=== PATIENT | female | born 1970 | race Caucasian/White ===

== ENCOUNTER 2022-10-03 16:28 | Observation (INO) ==
--- NOTE | 2022-10-03 17:15 | Emergency Department Note ---
History of Present Illness General Chief complaint: Abdominal Pain Stated complaint: ABDOMINAL PAIN,VOMIT,DIZZYNESS,SYNCOPE Time Seen by Provider: 10/03/22 16:51 History of Present Illness Maximum Pain Intensity: 6 This is a 52-year-old female who presents to the emergency department via private vehicle with complaints of "abdominal pain, vomiting, dizziness, syncope". The patient and notes that she has a history of extensive abdominal surgeries. 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 She notes that following this she has had bowel obstructions and pancreatitis. She states that over the past 3 to 4 days she has had nausea, vomiting and epigastric abdominal discomfort. She tried 8 mg of Zofran with minimal relief. She notes inability to tolerate oral food and fluids. She overall is not feeling well. She reached out to her specialist and was referred here for further evaluation and management. She notes no stool or flatus for the past few days. She denies any blood in the vomit. She denies any fevers, chills, chest pain or shortness of breath. She notes a history of cholecystectomy, appendectomy, splenectomy, bowel resection x2, and 4 procedures for lysis of ad hesions. She notes that she also has remote history of breast cancer. She notes allergies to surgical glue. In addition, patient notes that she believes secondary to dehydration and not eating much she did pass out earlier today and fell down some steps. She denies striking the head. Home Medications Medication Instructions Recorded Confirmed Type albuterol sulfate 90 mcg/actuation 2 puff inhalation Q4H PRN 10/03/22 10/03/22 History aerosol inhaler Shortness Of Breath Or Wheezing amoxicillin 875 mg-potassium 1 tab PO BID 10/03/22 10/03/22 History clavulanate 125 mg tablet anastrozole 1 mg tablet 1 mg PO DAILY 10/03/22 10/03/22 History fluticasone propionate 115 2 inh inhalation BID 10/03/22 10/03/22 History mcg-salmeterol 21 mcg/actuation HFA inhaler (Advair HFA) hyoscyamine sulfate 0.125 mg 0.125 mg sublingual .Q4-6HR PRN 10/03/22 10/03/22 History sublingual tablet NEEDED PER PT. ondansetron 8 mg disintegrating 8 mg PO Q8H PRN NAUSEA/VOMITING 10/03/22 10/03/22 History tablet progesterone micronized 200 mg 200 mg PO HS 10/03/22 10/03/22 History capsule Allergies Allergy/AdvReac Type Severity Reaction Status Date / Time adhesive tape Allergy Severe Hives Verified 10/03/22 23:07 Past Med/Surg History Medical History Hx of breast cancer Surgical History H/O splenectomy History of bowel resection Hx of appendectomy Hx of cholecystectomy Social History Smoking Status: Never smoker Preferred Language: [place] Feels Safe at Home: Yes Review of Systems A total of 10 systems reviewed and were otherwise negative Physical Exam Vital Signs Vital Signs - 24 hr 10/03/22 16:35 10/03/22 17:05 10/03/22 17:52 Temperature 36.5 C Temperature Source Temporal Artery Scan Pulse Rate 98 H 67 Pulse Rate [Finger] Pulse Rate from SpO2 Sensor Respiratory Rate 18 Respiratory Effort / Characteristics Non-Labored Respiratory Depth Normal Blood Pressure 125/85 Blood Pressure [Right Arm] Blood Pressure Mean 98 Blood Pressure Mean [Right Arm] Pulse Oximetry 95 98 Oxygen Delivery Method Room Air Room Air Sepsis Recent Fever Within 48 Hours No Sepsis New/Unexplained Change in Mental Status No Sepsis Action Taken by Nursing No Action Required 10/03/22 18:40 10/03/22 17:53 10/03/22 18:00 Temperature Temperature Source Pulse Rate 67 63 Pulse Rate [Finger] 72 Pulse Rate from SpO2 Sensor Respiratory Rate 14 15 10 L Respiratory Effort / Characteristics Respiratory Depth Blood Pressure Blood Pressure [Right Arm] 92/50 L Blood Pressure Mean Blood Pressure Mean [Right Arm] 64 Pulse Oximetry 96 Oxygen Delivery Method Room Air Sepsis Recent Fever Within 48 Hours Sepsis New/Unexplained Change in Mental Status Sepsis Action Taken by Nursing 10/03/22 18:09 10/03/22 18:42 10/03/22 18:45 Temperature Temperature Source Pulse Rate 76 Pulse Rate [Finger] Pulse Rate from SpO2 Sensor 74 Respiratory Rate 14 Respiratory Effort / Characteristics Respiratory Depth Blood Pressure 92/50 L Blood Pressure [Right Arm] Blood Pressure Mean 71 Blood Pressure Mean [Right Arm] Pulse Oximetry 97 Oxygen Delivery Method Sepsis Recent Fever Within 48 Hours Sepsis New/Unexplained Change in Mental Status Sepsis Action Taken by Nursing 10/03/22 19:00 10/03/22 19:22 10/03/22 19:22 Temperature Temperature Source Pulse Rate Pulse Rate [Finger] Pulse Rate from SpO2 Sensor 68 75 Respiratory Rate Respiratory Effort / Characteristics Respiratory Depth Blood Pressure 121/87 Blood Pressure [Right Arm] Blood Pressure Mean 92 Blood Pressure Mean [Right Arm] Pulse Oximetry 98 100 Oxygen Delivery Method Sepsis Recent Fever Within 48 Hours Sepsis New/Unexplained Change in Mental Status Sepsis Action Taken by Nursing 10/03/22 19:30 10/03/22 20:00 10/03/22 20:32 Temperature Temperature Source Pulse Rate Pulse Rate [Finger] Pulse Rate from SpO2 Sensor 65 67 61 Respiratory Rate Respiratory Effort / Characteristics Respiratory Depth Blood Pressure Blood Pressure [Right Arm] Blood Pressure Mean Blood Pressure Mean [Right Arm] Pulse Oximetry 98 98 99 Oxygen Delivery Method Sepsis Recent Fever Within 48 Hours Sepsis New/Unexplained Change in Mental Status Sepsis Action Taken by Nursing 10/03/22 21:00 10/03/22 21:37 10/03/22 21:39 Temperature Temperature Source Pulse Rate Pulse Rate [Finger] Pulse Rate from SpO2 Sensor 66 67 68 Respiratory Rate Respiratory Effort / Characteristics Respiratory Depth Blood Pressure Blood Pressure [Right Arm] Blood Pressure Mean Blood Pressure Mean [Right Arm] Pulse Oximetry 99 98 96 Oxygen Delivery Method Sepsis Recent Fever Within 48 Hours Sepsis New/Unexplained Change in Mental Status Sepsis Action Taken by Nursing 10/03/22 21:39 10/03/22 22:00 10/03/22 22:30 Temperature Temperature Source Pulse Rate Pulse Rate [Finger] Pulse Rate from SpO2 Sensor 62 63 Respiratory Rate Respiratory Effort / Characteristics Respiratory Depth Blood Pressure 95/79 L Blood Pressure [Right Arm] Blood Pressure Mean 83 Blood Pressure Mean [Right Arm] Pulse Oximetry 99 98 Oxygen Delivery Method Sepsis Recent Fever Within 48 Hours Sepsis New/Unexplained Change in Mental Status Sepsis Action Taken by Nursing VITAL SIGNS - Vital signs and triage nursing notes were reviewed. Stable and afebrile. GENERAL -52-year-old female appearing her stated age who is in no acute distress. Communicates well with provider and answers questions appropriately. SKIN - Without rashes. Well-healed surgical incisions over the abdomen noted, no evidence of acute or recent surgery. No meningeal or petechial rash. HEAD - NC/AT. EYES -Sclera anicteric. EARS - No deformities of external structures noted on gross examination bilaterally. NOSE - Midline and without cyanosis. No epistaxis or purulent drainage noted. MOUTH/OROPHARYNX - Without perioral cyanosis. NECK - Neck with FROM. No nuchal rigidity. LUNGS - Chest wall symmetric without accessory muscle use, intercostals retractions, or central cyanosis. Normal vesicular breath sounds CTA B/L. No wheezes, rales, or rhonchi appreciated. CARDIAC - RRR with S1/S2. No murmur, rubs, or gallops appreciated. ABDOMEN - Abdominal contour normal without pulsations or visible masses. BS nor moactive all four quadrants. There is epigastric abdominal tenderness to palpation. No guarding or rigidity. Abdomen is overall soft. No palpable masses, hepatosplenomegaly, or ascites noted. EXTREMITIES - +5/5 strength noted in UE/LE bilaterally. NEUROLOGIC - Cranial nerves II through XII grossly intact. PSYCH - A&O, and cooperates fully with examiner. Pt is very pleasant and interacts well with examiner. Course Administered Medications Discontinued Medications Hydromorphone HCl (Hydromorphone Inj 0.5 Mg/0.5 Ml Syr) 0.5 mg IV NOW STA Stop: 10/03/22 23:27 Last Admin: 10/03/22 23:39 Dose: 0.5 mg Documented By: ANUSHKA Hydromorphone HCl (Hydromorphone Inj 0.5 Mg/0.5 Ml Syr) Confirm Administered Dose 0.5 mg .ROUTE .STK-MED ONE Stop: 10/03/22 23:36 Last Admin: 10/03/22 23:38 Dose: Not Given Documented By: ANUSHKA Promethazine HCl (Phenergan) 12.5 mg in 50.5 mls @ 202 mls/hr IV NOW STA Stop: 10/03/22 17:30 Last Infusion: 10/03/22 17:59 Dose: 0 mls/hr Documented By: Admin: 10/03/22 17:41 Dose: 202 mls/hr Documented By: SWETA Sodium Chloride (Nss 1000ml) 1,000 mls @ 999 mls/hr IV .Q1H1M BERTO Stop: 10/03/22 18:30 Last Infusion: 10/03/22 18:47 Dose: 0 mls/hr Documented By: Admin: 10/03/22 17:42 Dose: 999 mls/hr Documented By: SWETA Famotidine (Pepcid 20mg Iv Push) 20 mg in 5 mls @ 2.5 mls/min IV NOW STA Stop: 10/03/22 19:30 Last Admin: 10/03/22 19:35 Dose: 2.5 mls/min Documented By: ANUSHKA Sodium Chloride (Nss 1000ml) 500 mls @ 500 mls/hr IV .Q1H ONE Stop: 10/03/22 20:45 Last Infusion: 10/03/22 21:49 Dose: 0 mls/hr Documented By: Admin: 10/03/22 20:01 Dose: 500 mls/hr Documented By: ANUSHKA Ceftriaxone Sodium 1,000 mg/ (Dextrose) 50 mls @ 100 mls/hr IV NOW STA Stop: 10/03/22 21:12 Last Admin: 10/03/22 21:43 Dose: 100 mls/hr Documented By: ANUSHKA Promethazine HCl 6.25 mg/ (Sodium Chloride) 50.25 mls @ 201 mls/hr IV NOW STA Stop: 10/03/22 23:20 Last Admin: 10/03/22 23:40 Dose: 201 mls/hr Documented By: ANUSHKA Ioversol (Optiray 320 100ml) 94 ml IV ONCE ONE Stop: 10/03/22 18:17 Last Admin: 10/03/22 18:17 Dose: 94 ml Documented By: LULA Ketorolac Tromethamine (Ketorolac Tromethamine 15 Mg/Ml Vial) 10 mg IV NOW ONE Stop: 10/03/22 19:47 Last Admin: 10/03/22 20:01 Dose: 10 mg Documented By: ANUSHKA Morphine Sulfate (Morphine Sulfate 4 Mg/Ml 1 Ml Carp\\Vial) 4 mg IV NOW STA Stop: 10/03/22 17:17 Last Admin: 10/03/22 17:41 Dose: 4 mg Documented By: SWETA Ondansetron HCl (Ondansetron Inj 2 Mg/Ml 2 Ml Vial) 4 mg IV NOW STA Stop: 10/03/22 19:12 Last Admin: 10/03/22 19:23 Dose: 4 mg Documented By: ANUSHKA Medical Decision Making Laboratory Data 10/03/22 16:45 10/03/22 16:45 Lab Results 10/03/22 10/03/22 10/03/22 Range/Units 16:45 16:45 17:00 WBC 8.19 (4.8-10.8) K/ul RBC 4.10 L (4.20-5.40) M/uL Hgb 12.4 (12.0-16.0) g/dl Hct 38.0 (37.0-47.0) % MCV 92.7 (80.0-100.0) fL MCH 30.2 (25.0-34.0) pg MCHC 32.6 (32.0-36.0) g/dL RDW Std Deviation 51.5 H (36.4-46.3) fL RDW Coeff of Kathia 15.1 H (11.5-14.5) % Plt Count 391 (130-400) K/uL MPV 10.6 (9.4-12.4) fL Immature Gran % (Auto) 0.2 % Neut % (Auto) 56.1 % Lymph % (Auto) 28.9 % Garza % (Auto) 9.9 % Eos % (Auto) 4.0 % Baso % (Auto) 0.9 % Neut # (Auto) 4.59 (1.40-6.50) K/uL Lymph # (Auto) 2.37 (1.2-3.4) K/uL Garza # (Auto) 0.81 H (0.11-0.59) K/uL Eos # (Auto) 0.33 (0-0.50) K/uL Baso # (Auto) 0.07 (0-0.2) K/uL Immature Gran # (Auto) 0.02 (0.01-0.20) K/uL Sodium 137 (136-145) mmol/L Potassium 3.7 (3.5-5.1) mmol/L Chloride 103 (98-107) mmol/L Carbon Dioxide 26 (21-32) mmol/L Anion Gap 8 (3-11) BUN 16 (6-23) mg/dl Creatinine 0.85 (0.6-1.2) mg/dl Est Cr Clr Drug Dosing 62.6 ml/min Est GFR ( Amer) 92.6 ml/min Est GFR (Non-Af Amer) 79.9 ml/min BUN/Creatinine Ratio 18.8 (10-20) Glucose 85 (70-99(Fasting)) mg/dl Calcium 10.4 H (8.6-10.3) mg/dl Total Bilirubin 0.7 (0.2-1.0) mg/dl AST 12 L (13-39) U/L ALT 7 (7-52) U/L Alkaline Phosphatase 51 (34-104) U/L Troponin I High Sens 4.2 (0-14) pg/ml Total Protein 7.5 (6.0-8.3) gm/dl Albumin 4.9 (3.4-5.0) gm/dl Globulin 2.6 (2.5-4.0) gm/dl Albumin/Globulin Ratio 1.9 (0.9-2) Amylase 29 (25-115) U/L Lipase 30 (11-82) U/L Urine Color Dark Yellow Urine Appearance Cloudy A (Clear) Urine pH 5.5 (4.5-7.5) Ur Specific [place] 1.030 (1.000-1.030) Urine Protein Trace H (Negative) Urine Glucose (UA) Negative (Negative) Urine Ketones 1+ H (Negative) Urine Blood Negative (Negative) Urine Nitrite Negative (Negative) Urine Bilirubin Negative (Negative) Urine Urobilinogen Negative (Negative) Ur Leukocyte Esterase 2+ H (Negative) Urine WBC (Auto) >30 H (0-5) /hpf Urine RBC (Auto) 5-10 H (0-4) /hpf U Hyaline Cast (Auto) 10-30 H (0-5) /lpf U Epithel Cells (Auto) 20-30 H (0-5) /lpf Urine Bacteria (Auto) Negative (Negative) SARS-CoV-2, RNA, NAAT (NEGATIVE) 10/03/22 Range/Units 19:24 WBC (4.8-10.8) K/ul RBC (4.20-5.40) M/uL Hgb (12.0-16.0) g/dl Hct (37.0-47.0) % MCV (80.0-100.0) fL MCH (25.0-34.0) pg MCHC (32.0-36.0) g/dL RDW Std Deviation (36.4-46.3) fL RDW Coeff of Kathia (11.5-14.5) % Plt Count (130-400) K/uL MPV (9.4-12.4) fL Immature Gran % (Auto) % Neut % (Auto) % Lymph % (Auto) % Garza % (Auto) % Eos % (Auto) % Baso % (Auto) % Neut # (Auto) (1.40-6.50) K/uL Lymph # (Auto) (1.2-3.4) K/uL Garza # (Auto) (0.11-0.59) K/uL Eos # (Auto) (0-0.50) K/uL Baso # (Auto) (0-0.2) K/uL Immature Gran # (Auto) (0.01-0.20) K/uL Sodium (136-145) mmol/L Potassium (3.5-5.1) mmol/L Chloride (98-107) mmol/L Carbon Dioxide (21-32) mmol/L Anion Gap (3-11) BUN (6-23) mg/dl Creatinine (0.6-1.2) mg/dl Est Cr Clr Drug Dosing ml/min Est GFR ( Amer) ml/min Est GFR (Non-Af Amer) ml/min BUN/Creatinine Ratio (10-20) Glucose (70-99(Fasting)) mg/dl Calcium (8.6-10.3) mg/dl Total Bilirubin (0.2-1.0) mg/dl AST (13-39) U/L ALT (7-52) U/L Alkaline Phosphatase (34-104) U/L Troponin I High Sens (0-14) pg/ml Total Protein (6.0-8.3) gm/dl Albumin (3.4-5.0) gm/dl Globulin (2.5-4.0) gm/dl Albumin/Globulin Ratio (0.9-2) Amylase (25-115) U/L Lipase (11-82) U/L Urine Color Urine Appearance (Clear) Urine pH (4.5-7.5) Ur Specific [place] (1.000-1.030) Urine Protein (Negative) Urine Glucose (UA) (Negative) Urine Ketones (Negative) Urine Blood (Negative) Urine Nitrite (Negative) Urine Bilirubin (Negative) Urine Urobilinogen (Negative) Ur Leukocyte Esterase (Negative) Urine WBC (Auto) (0-5) /hpf Urine RBC (Auto) (0-4) /hpf U Hyaline Cast (Auto) (0-5) /lpf U Epithel Cells (Auto) (0-5) /lpf Urine Bacteria (Auto) (Negative) SARS-CoV-2, RNA, NAAT NEGATIVE (NEGATIVE) Imaging Data Radiologist's Impression: Abdomen/Pelvis CT 10/03/22 17:[address] WITH IV CONTRAST CT DOSE: 436.06 mGy.cm HISTORY: Acute right lower quadrant abdominal pain upper abd pain TECHNIQUE: Multiaxial CT images of the abdomen and pelvis were performed following the IV administration of 94 cc of Optiray, A dose lowering technique was utilized adhering to the principles of ALARA. COMPARISON STUDY: None. FINDINGS: Clear lung bases. No pneumatosis or pneumoperitoneum. The spleen and gallbladder appear absent. Unremarkable pancreas and adrenal glands. The liver is within normal limits. Mild biliary ductal dilation may be on a postsurgical basis. Patency of the hepatic and portal veins. Unremarkable left kidney. Mild right-sided hydroureteronephrosis. No obstructing ureteral calculi or lesion identified. Unremarkable urinary bladder. No abdominal aortic aneurysm or lymphadenopathy. Postoperative changes of the stomach. Colonic diverticulosis. Mild to moderate fecal retention. Appendectomy. Unremarkable soft tissues. Probable injection granuloma subcutaneous left gluteal tissues. No acute fracture. IMPRESSION: 1. No bowel obstruction or bowel wall thickening. 2. Appendectomy. 3. Mild right-sided hydronephrosis. 4. Additional findings as above. ACT 112: Negative or not required by law. The above report was generated using voice recognition software. It may contain grammatical, syntax or spelling errors. Electronically signed by: Harjinder aGldamez M.D. 10/03/2022 6:41 PM [facility] Narrative Patient was seen and evaluated as above in room B07. Review was performed of triage nursing notes and vital signs. After obtaining a thorough history and physical examination the above work up was performed. Patient presents to us today for evaluation of abdominal pain, nausea and vomiting. Patient clinically well-appearing and nontoxic. Vital signs stable. She is tender in the upper abdomen to palpation. Options of care were discussed with the patient. IV access was established. Labs were drawn. Patient notes minimal relief with Zofran at home last evening and did indicate that she has done well with Phenergan in the past. 12.5 mg of IV Phenergan was ordered as well as IV fluids and morphine. She was reevaluated with some improvement however the nausea persisted. She has not had Zofran today therefore was amenable to proceeding with IV Zofran which was provided. CT scan of the abdomen/pelvis was obtained. Results as above. No bowel obstruction or bowel wall thickening. Mild right-sided hydronephrosis. Patient's labs reveal no leukocytosis or concerning anemia. No emergent metabolic disturbance. Urinalysis reveals possible UTI versus contaminated sample. In the setting of abdominal pain, nausea and vomiting UTI is possible as well as a sending urinary tract infection. Patient is asplenic. In the setting of nausea, vomiting and pending urinary culture at this time we will cover the patient with IV antibiotics. IV ceftriaxone was ordered. COVID testing is negative. In addition she was also provided IV Pepcid and IV Toradol. No contraindications identified at this time. P.o. fluid trial was in itiated and the patient was able to tolerate some of the water provided but unfortunately did have some near vomiting and return of abdominal discomfort. I discussed several options with the patient and at this time we will proceed with inpatient management. Case discussed with the hospitalist. Please refer to further documentation regarding her stay. Patient did note that she secondary to being dehydrated and not eating much believes that she passed out earlier today and fell down steps. She denies striking the head. There are no signs of head injury. Patient's nausea, vomiting abdominal pain began before the syncopal event. To be thorough I did add on an EKG and troponin with a syncopal event noted. Troponin is within normal range and the EKG reveals normal sinus rhythm at a rate of 66 bpm. QTc 381. QRS 86. There is no ST elevation. No previous for comparison. In the evaluation and treatment of this patient the following differential diagnoses were entertained: ND, PE, dissection, acute cardiac event, pneumonia, pancreatitis, bowel obstruction, UTI, pyelonephritis, among others. Impression & Plan Abdominal pain, epigastric, Nausea & vomiting Discharge Plan Visit Data Chief Complaint: Abdominal Pain Stated Complaint: ABDOMINAL PAIN,VOMIT,DIZZYNESS,SYNCOPE ED Provider: Maicol Cortés ED Midlevel Provider: Albin Locke Discharge Problem: Abdominal pain, epigastric, Nausea & vomiting Patient Disposition: Admitted As Inpatient Condition: Good Discharge Instructions Interventions: ED Discharge Assessment Last Done: 10/03/22 23:44
[2022-10-03] MEDS ORDERED: MoRPHine SULFATE 4 MG/ML 1 ML CARP\\VIAL IV STA (17:16)
[2022-10-03] MEDS ORDERED: PROMETHAZINE 12.5 MG/50.5 ML BAG IV STA (17:16)
[2022-10-03 17:26] LABS: Appearance Urine Cloudy (Clear); Bacteria Urine Automated Negative (Negative); Bilirubin Urine Negative (Negative); Blood Urine Negative (Negative); Color Urine Dark Yellow; Epithelial Cell Urine Auto 20-30 /lpf (0-5); Glucose Urine UA Negative (Negative); Ketones Urine 1+ (Negative); Leukocyte Esterase Urine 2+ (Negative); Nitrite Urine Negative (Negative); Protein Urine Trace (Negative); Urobilinogen Urine Negative (Negative); WBC Urine Automated >30 /hpf (0-5); pH Urine 5.5 (4.5-7.5)
[2022-10-03 17:28] LABS: Basophils # (auto) 0.07 K/uL (0-0.2); Basophils % (auto) 0.9 %; Eosinophils # (auto) 0.33 K/uL (0-0.50); Hemoglobin 12.4 g/dl (12.0-16.0); Immature Granulocytes # (auto) 0.02 K/uL (0.01-0.20); Immature Granulocytes % (auto) 0.2 %; Lymphocytes # (auto) 2.37 K/uL (1.2-3.4); Lymphocytes % (auto) 28.9 %; Mean Corpuscular Hemoglobin 30.2 pg (25.0-34.0); Mean Corpuscular Hgb Conc 32.6 g/dL (32.0-36.0); Mean Corpuscular Volume 92.7 fL (80.0-100.0); Mean Platelet Volume 10.6 fL (9.4-12.4); Monocytes # (auto) 0.81 K/uL (0.11-0.59); Monocytes % (auto) 9.9 %; Neutrophils # (auto) 4.59 K/uL (1.40-6.50); Neutrophils % (auto) 56.1 %; Platelet Count 391 K/uL (130-400); RDW Coefficient of Variation 15.1 % (11.5-14.5); RDW Standard Deviation 51.5 fL (36.4-46.3); White Blood Count 8.19 K/ul (4.8-10.8)
[2022-10-03] MEDS ORDERED: SODIUM CHLORIDE 0.9% 1000ML 1,000 ML IV SCH (17:30)
[2022-10-03 17:43] LABS: Albumin Globulin Ratio 1.9 (0.9-2); Albumin Level 4.9 gm/dl (3.4-5.0); BUN Creatinine Ratio 18.8 (10-20); Bilirubin,Total 0.7 mg/dl (0.2-1.0); Calcium 10.4 mg/dl (8.6-10.3); Creatinine Clr Calc Pharmacy 62.6 ml/min; Est GFR (African American) 92.6 ml/min; Est GFR (Non-African American) 79.9 ml/min; Globulin 2.6 gm/dl (2.5-4.0); Potassium 3.7 mmol/L (3.5-5.1); Total Protein 7.5 gm/dl (6.0-8.3)
[2022-10-03 17:48] LABS: Troponin I High Sensitivity 4.2 pg/ml (0-14)
[2022-10-03] MEDS ORDERED: OPTIRAY 320 100ml IV ONE (18:16)
--- NOTE | 2022-10-03 18:42 | CT Scan Report ---
ABDOMEN AND PELVIS CT WITH IV CONTRAST CT DOSE: 436.06 mGy.cm HISTORY: Acute right lower quadrant abdominal pain upper abd pain TECHNIQUE: Multiaxial CT images of the abdomen and pelvis were performed following the IV administrat ion of 94 cc of Optiray, A dose lowering technique was utilized adhering to the principles of ALARA. COMPARISON STUDY: None. FINDINGS: Clear lung bases. No pneumatosis or pneumoperitoneum. The spleen and gallbladder appear abs ent. Unremarkable pancreas and adrenal glands. The liver is within normal limits. Mild biliary ductal dilation may be on a postsurgical basis. Patency of the hepatic and portal veins. Unremarkable left kidney. Mild right-sided hydroureteronephrosis. No obstructing ureteral calculi or lesion identified. Unremarkable urinary bladder. No abdominal aortic aneurysm or lymphadenopathy. Postoperative changes of the stomach. Colonic diverticulosis. Mild to moderate fecal retention. Appen dectomy. Unremarkable soft tissues. Probable injection granuloma subcutaneous left gluteal tissues. N o acute fracture. IMPRESSION: 1. No bowel obstruction or bowel wall thickening. 2. Appendectomy. 3. Mild right-sided hydronephrosis. 4. Additional findings as above. ACT 112: Negative or not required by law. The above report was generated using voice recognition software. It may contain grammatical, syntax o r spelling errors. Electronically signed by: Harjinder Galdamez M.D. 10/03/2022 6:41 PM
[2022-10-03] MEDS ORDERED: ONDANSETRON INJ 2 MG/ML 2 ML VIAL IV STA (19:11)
[2022-10-03] MEDS ORDERED: FAMOTIDINE 20MG IV PUSH 20 MG/5 ML SYR IV STA (19:29)
[2022-10-03] MEDS ORDERED: SODIUM CHLORIDE 0.9% 1000ML 500 ML IV ONE (19:46)
[2022-10-03] MEDS ORDERED: KETOROLAC TROMETHAMINE 15 MG/ML VIAL IV ONE (19:46)
[2022-10-03] MEDS ORDERED: cefTRIAXone SODIUM 1,000 MG in DEXTROSE 5% AD-VAN 50 ML IV STA (20:43)
[2022-10-03] MEDS ORDERED: PROMETHAZINE HCL 6.25 MG in SODIUM CHLORIDE 0.9% 50 ML IV STA (23:06)
[2022-10-03] MEDS ORDERED: HYDROmorphone INJ 0.5 MG/0.5 ML SYR IV STA (23:26)
[2022-10-03] MEDS ORDERED: HYDROmorphone INJ 0.5 MG/0.5 ML SYR ONE (23:35)
[2022-10-04] MEDS ORDERED: ALBUTEROL HFA 8 GM INHALER INH PRN (01:11)
[2022-10-04] MEDS: ACETAMINOPHEN 325 MG TAB PO PRN ×2 (01:35→20:56)
[2022-10-04] MEDS: ONDANSETRON INJ 2 MG/ML 2 ML VIAL IV PRN ×4 (01:35→23:28)
[2022-10-04] MEDS: D5W AND 1/2NSS 1,000 ML IV SCH ×3 (01:40→18:17)
--- NOTE | 2022-10-04 01:57 | History and Physical Report ---
DATE OF ADMISSION: 10/03/2022. CHIEF COMPLAINT: Nausea, vomiting, abdominal pain. 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 Carrie says scheduled for another surgery in coming November as , has ongoing nausea, vomiting and weight loss for several months and plan for abdominal surgery to assess the previous surgical site as per patient. She is from [facility] in [place]. She is in [place] [facility] [employer] for horse show, last 2-3 days her usual nausea, vomiting, abdominal pain got worse and today she fell climbing the steps. She had a dizzy spell and fell down and lost consciousness for few seconds no significant injury.. Currently denies any chest pain. No shortness of breath, no cough, no fevers, no headache, no blurred visions, no earache, no runny nose. Has some nausea. Has abdominal pain. She did not move her bowels for the last 3 to 4 days. She is not passing much gas. Normal bladder movements. No swelling in the legs, no rash. Afebrile. Resting comfortably and hemodynamically stable. ALLERGIES: SURGICAL TAPE. PAST MEDICAL HISTORY: As mentioned above. Also has seasonal allergies. PAST SURGICAL HISTORY: As mentioned above. MEDICATIONS: Albuterol 2 puffs inhalation q. 4 hours p.r.n., Augmentin 1 tablet p.o. b.i.d. supposed to start next Friday for upcoming surgery, anastrozole 1 mg p.o. daily, Advair Diskus HFA 2 puffs inhalation b.i.d., hyoscyamine 0.125 mg p.o. q. 4-6 hours p.r.n., Zofran 8 mg p.o. q. 8 hours p.r.n., progesterone micronized 200 mg p.o. at bedtime. FAMILY HISTORY: Significant for father had heart disease. Mother has high cholesterol. SOCIAL HISTORY: Denies smoking. No alcohol. REVIEW OF SYSTEMS: As per HPI. Rest of review of systems is negative. PHYSICAL EXAMINATION: GENERAL: The patient is of moderate build, not in acute distress. VITAL SIGNS: Temperature 36.5, pulse 72, respiratory rate 14, blood pressure 92/50, oxygen 96% on room air. HEENT: Pupils equal, round and reactive to light. Oral mucosa moist. NECK: No JVD, no neck masses. CARDIOVASCULAR: S1 and S2 heard. Regular rate and rhythm. No murmur, no gallop. RESPIRATORY SYSTEM: Normal AP diameter. No accessory muscle use. No wheezing or crackles. ABDOMEN: Soft, bowel sounds sluggish, diffuse tenderness mild guarding, no rigidity. CENTRAL NERVOUS SYSTEM: Cranial nerves II-XII grossly intact, nonfocal. EXTREMITIES: No edema, no erythema. LABORATORY DATA: WBC 8.1, hemoglobin 12.4, hematocrit 38, platelets 391. Sodium 137, potassium 3.7, chloride 103, bicarbonate 26, BUN 16, creatinine 0.8, serum glucose 85, calcium 10.4, total bilirubin 0.7, AST 12, ALT 7, alkaline phosphatase 51. Troponin I high sensitivity 4.2. Lipase 30. Urinalysis, +2 leukocyte esterase, bacteria 3+. SARS-CoV-2 rapid test negative. IMAGING DATA: CT abdomen and pelvis with IV contrast, no bowel obstruction or bowel wall thickening, appendectomy, mild right-sided hydronephrosis. EKG: Normal sinus rhythm, rate of 66, no acute ST changes seen. ASSESSMENT AND PLAN: This is a 52-year-old female with multiple abdominal surgeries and multiple small-bowel obstructions, surgery for small-bowel obstruction and also adhesiolysis as per the patient, comes in with nausea, vomiting, abdominal pain. 1. Nausea, vomiting, abdominal pain. CAT scan abdomen and pelvis is mostly unremarkable. We will place her on n.p.o., IV fluids, IV antiemetics, IV pain medications, IV Pepcid b.i.d. and monitor for response. IF not improving, consult GI. 2. Urinary tract infection, possibly contributing to her symptoms. Started on Rocephin. We will follow the cultures. 3. Syncope. The patient says she felt dizzy and passed out for 2-3 seconds. Could be dehydration from her symptoms. We will do orthostatics. Monitor in the tele floor. Get echocardiogram. Get cardiac enzymes. If any concern, consult Cardiology. 4. History of seasonal asthma. Inhalers as needed. 5. Deep venous thrombosis prophylaxis. Lovenox. DISPOSITION: Closely monitor in the med tele. PT/OT prior to discharge. Social service to help with discharge planning. Job ID: [id number] KENZIE
[2022-10-04] MEDS: ENOXAPARIN INJ 40 MG/0.4 ML SYR SQ SCH (03:32)
[2022-10-04] MEDS: HYDROmorphone INJ 0.5 MG/0.5 ML SYR IV PRN ×5 (03:32→23:29)
[2022-10-04] MEDS: PROMETHAZINE HCL 12.5 MG in SODIUM CHLORIDE 0.9% 50 ML IV PRN ×3 (04:17→18:55)
[2022-10-04 06:10] LABS: Hematocrit (blood only) 30.2 % (37.0-47.0); Hemoglobin 9.8 g/dl (12.0-16.0); Mean Corpuscular Hemoglobin 30.1 pg (25.0-34.0); Mean Corpuscular Hgb Conc 32.5 g/dL (32.0-36.0); Mean Corpuscular Volume 92.6 fL (80.0-100.0); Mean Platelet Volume 9.8 fL (9.4-12.4); Platelet Count 326 K/uL (130-400); RDW Coefficient of Variation 15.4 % (11.5-14.5); Red Blood Count 3.26 M/uL (4.20-5.40); White Blood Count 7.56 K/ul (4.8-10.8)
[2022-10-04 06:39] LABS: BUN Creatinine Ratio 13.2 (10-20); Calcium 8.2 mg/dl (8.6-10.3); Est GFR (Non-African American) 91.5 ml/min; Magnesium 1.8 mg/dl (1.7-2.4); Potassium 3.9 mmol/L (3.5-5.1)
[2022-10-04 06:41] LABS: Basophils # (auto) 0.09 K/uL (0-0.2); Basophils % (auto) 1.2 %; Eosinophils # (auto) 0.57 K/uL (0-0.50); Eosinophils % (auto) 7.5 %; Immature Granulocytes # (auto) 0.01 K/uL (0.01-0.20); Immature Granulocytes % (auto) 0.1 %; Lymphocytes % (auto) 55.6 %; Monocytes % (auto) 10.6 %; Neutrophils # (auto) 1.89 K/uL (1.40-6.50)
[2022-10-04 08:44] LABS: Troponin I High Sensitivity 4.7 pg/ml (0-14)
[2022-10-04] MEDS ORDERED: NON-FORMULARY MEDICATION (Fluticasone Propion-Salmeterol [Advair Hfa] 115-21 mcg/actuation INH SCH (09:00)
[2022-10-04] MEDS: FLUTICASONE/VILANTEROL 200/25MCG 14 PUFFS/INHALER INH SCH (09:08)
[2022-10-04] MEDS: FAMOTIDINE 20 MG in SYRINGE 3 ML IV SCH ×2 (09:09→20:56)
[2022-10-04] MEDS: LINACLOTIDE 145 MCG CAPSULE PO SCH (09:09)
[2022-10-04] MEDS ORDERED: DICYCLOMINE HCL 10 MG CAP PO PRN (11:09)
--- NOTE | 2022-10-04 11:33 | Electrocardiogram Report ---
Test Reason : Blood Pressure : / mmHG Vent. Rate : 066 BPM Atrial Rate : 066 BPM P-R Int : 138 ms QRS Dur : 086 ms QT Int : 364 ms P-R-T Axes : 067 076 045 degrees QTc Int : 381 ms Normal sinus rhythm Normal ECG No previous ECGs available Confirmed by Darwin Lamb ([id number]) on 10/04/2022 11:33:18 AM Referred By: REFERRED SELF Confirmed By:Braxton Lamb
--- NOTE | 2022-10-04 12:15 | Communication Note ---
Date of Service: October 04, 2022 52-year-old female with PMH of endometriosis, status post hysterectomy and fallopian tube taken out as per patient, gastric sleeve surgery for weight loss in 2019 complicated with a splenic injury requiring multiple blood transfusion leading to splenectomy as per patient, multiple small bowel obstructions with one of them needing bowel resection and another needing adhesiolysis. Patient states she is scheduled for another surgery in coming November as she has ongoing nausea/vomiting/weight loss for several months to assess the previous surgical site. She comes in with complaint of worsening nausea, vomiting, abdominal pain leading to fall while climbing the steps prior to arrival. She also had dizzy spell and lost consciousness for few seconds with no significant injury as per her. She is being managed for the following: Acute exacerbation of chronic nausea/vomiting/abdominal pain on the background gastric sleeve surgery in 2019 Syncope : Acute flareup of her nausea/vomiting/abdominal pain leading to decreased appetite and weakness leading to fall. Patient has been resuscitated with IV fluids, continue with antiemetics and advance diet as tolerated. Patient reports some improvement in her belly pain and nausea. We will continue with IV fluids for now. Echo was reviewed and fairly WNL. EKG with NSR. Orthostatic vitals negative. Patient reports improvement in her dizziness. Clear liquid diet, advance diet as tolerated. Acute UTI: Could be contributing to her symptoms, continue with Rocephin, follow cultures. Other chronic medical conditions: Continue home meds as able. DVT prophylaxis: Lovenox Disposition likely tomorrow. Advance diet as tolerated. On examination: Some epigastric tenderness, on room air, NAD, heart and lungs examination WNL. For detailed information on the patient, refer to today's H&P note.
[2022-10-04] MEDS: cefTRIAXone SODIUM 1,000 MG in DEXTROSE 5% AD-VAN 50 ML IV SCH (20:49)
[2022-10-05] MEDS: ACETAMINOPHEN 325 MG TAB PO PRN ×3 (01:03→11:31)
[2022-10-05] MEDS: PROMETHAZINE HCL 12.5 MG in SODIUM CHLORIDE 0.9% 50 ML IV PRN ×2 (01:04→07:50)
[2022-10-05] MEDS: D5W AND 1/2NSS 1,000 ML IV SCH ×2 (03:02→11:15)
[2022-10-05] MEDS: HYDROmorphone INJ 0.5 MG/0.5 ML SYR IV PRN (03:30)
[2022-10-05] MEDS: ONDANSETRON INJ 2 MG/ML 2 ML VIAL IV PRN ×2 (05:18→11:32)
[2022-10-05] MEDS: ENOXAPARIN INJ 40 MG/0.4 ML SYR SQ SCH (05:18)
[2022-10-05 06:08] LABS: Hematocrit (blood only) 33.3 % (37.0-47.0); Hemoglobin 10.4 g/dl (12.0-16.0); Mean Corpuscular Hemoglobin 30.3 pg (25.0-34.0); Mean Corpuscular Hgb Conc 31.2 g/dL (32.0-36.0); Mean Corpuscular Volume 97.1 fL (80.0-100.0); Mean Platelet Volume 10.2 fL (9.4-12.4); Platelet Count 358 K/uL (130-400); RDW Coefficient of Variation 15.5 % (11.5-14.5); RDW Standard Deviation 55.6 fL (36.4-46.3); Red Blood Count 3.43 M/uL (4.20-5.40); White Blood Count 6.41 K/ul (4.8-10.8)
[2022-10-05 06:23] LABS: BUN Creatinine Ratio 3.9 (10-20); Calcium 8.9 mg/dl (8.6-10.3); Creatinine Clr Calc Pharmacy 69.1 ml/min; Est GFR (African American) 104.3 ml/min; Magnesium 1.8 mg/dl (1.7-2.4); Phosphorus 3.9 mg/dl (2.5-4.9); Potassium 4.2 mmol/L (3.5-5.1)
[2022-10-05] MEDS: LINACLOTIDE 145 MCG CAPSULE PO SCH (07:50)
[2022-10-05] MEDS: FAMOTIDINE 20 MG in SYRINGE 3 ML IV SCH (07:50)
[2022-10-05] MEDS: FLUTICASONE/VILANTEROL 200/25MCG 14 PUFFS/INHALER INH SCH (07:50)
[2022-10-05] MEDS ORDERED: ADVANCED PROBIOTIC 1250 MG CAPSULE PO SCH (11:30)
--- NOTE | 2022-10-05 14:33 | Discharge Summary ---
Date of Service October 05, 2022 Admission HPI Per Admitting Provider DATE OF ADMISSION: 10/03/2022. CHIEF COMPLAINT: Nausea, vomiting, abdominal pain. 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 Carrie says scheduled for another surgery in coming November as , has ongoing nausea, vomiting and weight loss for several months and plan for abdominal surgery to assess the previous surgical site as per patient. [place] [facility] [place] She is in [place] for horse show, last 2-3 days her usual nausea, vomiting, abdominal andry n got worse and today she fell climbing the steps. She had a dizzy spell and fell down and lost consciousness for few seconds no significant injury.. Currently denies any chest pain. No shortness of breath, no cough, no fevers, no headache, no blurred visions, no earache, no runny nose. Has some nausea. Has abdominal pain. She did not move her bowels for the last 3 to 4 days. She is not passing much gas. Normal bladder movements. No swelling in the legs, no rash. Afebrile. Resting comfortably and hemodynamically stable. ALLERGIES: SURGICAL TAPE. PAST MEDICAL HISTORY: As mentioned above. Also has seasonal allergies. PAST SURGICAL HISTORY: As mentioned above. MEDICATIONS: Albuterol 2 puffs inhalation q. 4 hours p.r.n., Augmentin 1 tablet p.o. b.i.d. supposed to start next Friday for upcoming surgery, anastrozole 1 mg p.o. daily, Advair Diskus HFA 2 puffs inhalation b.i.d., hyoscyamine 0.125 mg p.o. q. 4-6 hours p.r.n., Zofran 8 mg p.o. q. 8 hours p.r.n., progesterone micronized 200 mg p.o. at bedtime. FAMILY HISTORY: Significant for father had heart disease. Mother has high cholesterol. SOCIAL HISTORY: Denies smoking. No alcohol. REVIEW OF SYSTEMS: As per HPI. Rest of review of systems is negative. Admission Exam Per Admitting Provider GENERAL: The patient is of moderate build, not in acute distress. VITAL SIGNS: Temperature 36.5, pulse 72, respiratory rate 14, blood pressure 92/50, oxygen 96% on room air. HEENT: Pupils equal, round and reactive to light. Oral mucosa moist. NECK: No JVD, no neck masses. CARDIOVASCULAR: S1 and S2 heard. Regular rate and rhythm. No murmur, no gallop. RESPIRATORY SYSTEM: Normal AP diameter. No accessory muscle use. No wheezing or crackles. ABDOMEN: Soft, bowel sounds sluggish, diffuse tenderness mild guarding, no rigidity. CENTRAL NERVOUS SYSTEM: Cranial nerves II-XII grossly intact, nonfocal. EXTREMITIES: No edema, no erythema. Principal Diagnosis Acute flareup of chronic nausea, vomiting, abdominal pain on the background of gastric sleeve surgery in 2019 Syncope likely secondary to poor appetite and vomiting Acute UTI Discharge Exam GENERAL: Alert and oriented x3. NAD, on RA. HEENT: No pallor, no icterus. Pupils equal, round and reactive to light. Oral mucosa moist. NECK: No JVD, no neck masses. HEART: S1 and S2 heard. Regular rate and rhythm. No murmur, no gallop. RESPIRATORY SYSTEM: Normal AP diameter. No accessory muscle use. No wheezing, no crackles. ABDOMEN: Soft, bowel sounds present, no epigastric tenderness, no distention. healed old surgical scar CENTRAL NERVOUS SYSTEM: No facial droop. Speech is clear. Obeys simple commands. Moves extremities. EXTREMITIES: No edema, no erythema seen. Discharge Data Allergies Allergy/AdvReac Type Severity Reaction Status Date / Time adhesive tape Allergy Severe Hives Verified 10/03/22 23:07 surgical glue Allergy Unknown Uncoded 10/04/22 07:20 Consultations 10/03/22 22:09 ED Decision to Admit Stat Ordered Studies 10/03/22 17:16 CT abd pelvis IV con only Stat Hospital Course (1) Abdominal pain, epigastric: Plan 52-year-old female with PMH of endometriosis, status post hysterectomy and fallopian tube taken out as per patient, gastric sleeve surgery for weight loss in 2019 complicated with a splenic injury requiring multiple blood transfusion leading to splenectomy as per patient, multiple small bowel obstructions with one of them needing bowel resection and another needing adhesiolysis. Patient states she is scheduled for another surgery in coming November as she has ongoing nausea/vomiting/weight loss for several months to assess the previous surgical site. She comes in with complaint of worsening nausea, vomiting, abdominal pain leading to fall while climbing the steps prior to arrival. She also had dizzy spell and lost consciousness for few seconds with no significant injury as per her. She is being managed for the following: Acute exacerbation of chronic nausea/vomiting/abdominal pain on the background gastric sleeve surgery in 2019 Syncope Acute flareup of her nausea/vomiting/abdominal pain leading to decreased appetite and weakness leading to fall. Patient has been resuscitated with IV fluids, continue with antiemetics and advance diet as tolerated.Pt has been tolerating diet well, no further vomiting and belly pain has improved significantly/less pain meds use. Will DC ivf. Echo was reviewed and fairly WNL. EKG with NSR. Orthostatic vitals negative. Patient reports improvement in her dizziness. Patient is hemodynamically stable and would like to go home. Acute UTI: Could be contributing to her symptoms, continue with Rocephin, on oral antibiotics before discharge. Other chronic medical conditions: Continue home meds as able. Patient being discharged home with following instruction at the point of discharge: Follow-up with your primary care physician within a week time and likely you will need labs CBC/CMP/magnesium/phosphorus. You can incorporate probiotic in your diet like yogurt. Maintain on soft diet for 1 to 2 weeks then slowly advance towards your regular consistency diet. For your UTI, you will be given with antibiotics course, complete as prescribed. Follow-up with the GI doctor as an outpatient as prior. Please make sure that you are able to get your medications today by calling your pharmacy before you leave the hospital so that your treatment continuity is not broken. Home Health Attestation I certify that this patient is under my care and that I, or a physicians purchasing assistant working with me, had a face to-face encounter that meets the home health [id number] encounter requirements with this patient. The encounter with the patient was in whole, or in part, for the following medical condition, which is the primary reason for home health care (list medical condition): I certify that, based on my findings, the following services are medically necessary home health services: My clinical findings support the need for the above services because: Further, I certify that my clinical findings support that this patient is homebound (i.e. absences from home require considerable and taxing effort and are for medical reasons or sabianism services or infrequently or of short duration when for other reasons) because: Certification for Home Health Services: Based on the above findings, I certify that this patient is confined to the home and needs intermittent mcc care, physical therapy and/or speech therapy or continues to need occupational therapy. The patient is under my care, and I have initiated the establishment of the plan of care. This patient will be followed by a physician who will periodically review the plan of care. Total Time Total Time Spent Total Time Spent (In Minutes): 50 Discharge Plan Discharge Items Patient Disposition: Home - Self-Care Reason For Visit: ABDOMINAL PAIN Discharge Diagnosis: Acute flareup of chronic nausea, vomiting, abdominal pain on the background of gastric sleeve surgery in 2019 Syncope likely secondary to poor appetite and vomiting Acute UTI Condition on Discharge: Good Activity: Resume your previous activity Non-emergency contact: Primary Care Provider Call non-emergency contact if: you have any medication questions, your pain is not controlled and your temperature is above 101 Follow-up/Referrals: Trinity Steele PA-C [Primary Care Provider] - Diet: Low Fiber Diet Texture: Easy to Chew Addtl Attending Provider Instructions: Follow-up with your primary care physician within a week time and likely you will need labs CBC/CMP/magnesium/phosphorus. You can incorporate probiotic in your diet like yogurt. Maintain on soft diet for 1 to 2 weeks then slowly advance towards your regular consistency diet. For your UTI, you will be given with antibiotics course, complete as prescribed. Follow-up with the GI doctor as an outpatient as prior. Please make sure that you are able to get your medications today by calling your pharmacy before you leave the hospital so that your treatment continuity is not broken. Pending Studies at Discharge: No Stand-Alone Forms: My [employer], Smoking Cessation Medications and DC Order Prescriptions: New dicyclomine 10 mg Capsule 10 mg PO TID PRN (Reason: abdominal pain) Qty: 30 0RF Advanced Probiotic 625 mg (10 billion cell) Capsule 2 cap PO DAILY 7 Days Qty: 14 0RF ondansetron 4 mg tablet,disintegrating 4 mg PO Q8H PRN (Reason: nausea and vomiting) Qty: 30 0RF oxycodone-acetaminophen [Percocet] 5-325 mg tablet 1 tab PO Q8H PRN (Reason: pain (scale score 7-10)) 3 Days Qty: 9 0RF cephalexin 750 mg capsule 750 mg PO TID 5 Days Qty: 15 0RF famotidine 20 mg tablet 20 mg PO BID Qty: 60 0RF Continued anastrozole 1 mg tablet 1 mg PO DAILY hyoscyamine sulfate 0.125 mg tablet, sublingual 0.125 mg sublingual .Q4-6HR PRN (Reason: NEEDED PER PT.) progesterone micronized 200 mg capsule 200 mg PO HS albuterol sulfate 90 mcg/actuation HFA aerosol inhaler 2 puff INHALATION Q4H PRN (Reason: Shortness Of Breath Or Wheezing) fluticasone propion-salmeterol [Advair HFA] 115-21 mcg/actuation HFA aerosol inhaler 2 inh INHALATION BID Discontinued ondansetron 8 mg tablet,disintegrating 8 mg PO Q8H PRN (Reason: NAUSEA/VOMITING) amoxicillin-pot clavulanate 875-125 mg tablet 1 tab PO BID Rx Instructions: PER PT "AM TO START 10/07/22". Discharge Orders: Discharge Order (Routine); Ordered 10/05/22 Ordered By: Sarah Gonzalez Admission Data Admit Date/Time: 10/03/22 22:56 Attending Provider: Sarah Gonzalez Admit Provider: Gaston Lynne Primary Care Provider: Trinity Steele Other Providers: Gaston Lynne
[2022-10-05] MEDS ORDERED: Nursing to Pharmacy Communication SCH (15:00)
[2022-10-05] MEDS ORDERED: PROMETHAZINE HCL 25 MG TAB PO ONE (16:10)
[2022-10-05] MEDS: cefTRIAXone SODIUM 1,000 MG in DEXTROSE 5% AD-VAN 50 ML IV SCH (16:33)
== END 2022-10-05 17:30 | disposition home or self-care (01) ==
LOC: ED 16:28 → 2N 16:28